=== PATIENT | male | born 1945 | race Caucasian/White ===

== ENCOUNTER 2021-07-28 10:46 | Day surgery (SDC) | payer MEDICAID ==
[~2021-07-28] VITALS: Ht 170.2 cm; Wt 95.0 kg
[~2021-07-28 10:46] MED LIST: LISI-894 PO; MELA5TAB40 PO; MESA0.374 PO; METF-1185 PO; NIFE-40 PO; SODIUM CHLORIDE 0.9% 1,000 ML IV ONE; SODIUM CHLORIDE 0.9% 1,000 ML ONE
[2021-07-28] MEDS ORDERED: PROPOFOL 1% 20 ML VIAL IVP ONE (12:00)
[2021-07-28 12:06] LABS: GLUCOMETER DEV NAME(LOC) SDS.; GLUCOSE,POINT OF CARE 104 MG/DL (70-110)
[2021-07-28 15:32] LABS: COVID AG,FIA SOURCE NASAL SWAB
== END 2021-07-28 14:05 | disposition home or self-care (01) ==
LOC: SURGERY 10:46
PROVIDERS: ATTEND Internal Medicine Gastroenterology
DX: K51.90 Ulcerative colitis, unspecified, without complications (principal); K57.30 Diverticulosis of large intestine without perforation or abscess without bleeding; E11.9 Type 2 diabetes mellitus without complications; I10 Essential (primary) hypertension; E78.5 Hyperlipidemia, unspecified; Z79.899 Other long term (current) drug therapy; Z98.890 Other specified postprocedural states
CPT/HCPCS: 45380; 82962; 87426; 88305; 93005; C9803; J2704; J7030